=== PATIENT | male | born 1980 | race Caucasian/White ===

== ENCOUNTER → 2018-10-30 | Outpatient (CLI) | payer BC | LOC: M ADAMS 15:56 | DX: M25.512 Pain in left shoulder (principal); M54.5 Low back pain | CPT/HCPCS: 72100 ==

== ENCOUNTER → 2018-11-22 | Outpatient (REF) | payer BC ==
[2018-11-22 17:38] LABS: BASO # 0.1 10^3/uL (0.0-0.2); BASO % 0.7 % (0.0-1.0); EOS # 0.2 10^3/uL (0.0-0.50); EOS % 2.3 % (0.0-3.0); HEMATOCRIT 46.6 % (42.0-52.0); LYMPH % 25.8 % (24.0-44.0); MEAN CORPUSCULAR HEMOGLOBIN 30.4 pg (27.0-33.0); MEAN CORPUSCULAR HGB CONC 34.3 g/dl (32.0-36.5); MEAN CORPUSCULAR VOLUME 88.4 fl (80.0-96.0); MONO # 0.5 10^3/uL (0.0-0.8); NEUTROPHILS # 4.9 10^3/uL (1.8-7.7); NEUTROPHILS % 63.3 % (36.0-66.0); PLATELET COUNT, AUTOMATED 223 10^3/uL (150-450); RED BLOOD COUNT 5.27 10^6/uL (4.30-6.10); WHITE BLOOD COUNT 7.7 10^3/uL (4.0-10.0)
[2018-11-22 17:52] LABS: ALBUMIN 3.9 GM/DL (3.2-5.2); ALT/SGPT 41 U/L (12-78); BILIRUBIN,TOTAL 0.5 MG/DL (0.2-1.0); BLOOD UREA NITROGEN 14 MG/DL (7-18); CALCIUM LEVEL 8.8 MG/DL (8.5-10.1); CARBON DIOXIDE LEVEL 29 MEQ/L (21-32); CHLORIDE LEVEL 105 MEQ/L (98-107); CHOLESTEROL LEVEL 201 MG/DL (<200); CHOLESTEROL RISK RATIO 4.568 (<5); CREATININE FOR GFR 0.94 MG/DL (0.70-1.30); FREE T4 0.74 NG/DL (0.76-1.46); GLOMERULAR FILTRATION RATE > 60.0 (>60); GLUCOSE, FASTING 82 MG/DL (70-100); HDL CHOLESTEROL 44 MG/DL (>40); LDL CHOLESTEROL 110 MG/DL (<100); NON-HDL-C 157 MG/DL; POTASSIUM SERUM 4.3 MEQ/L (3.5-5.1); SODIUM LEVEL 140 MEQ/L (136-145); TRIGLYCERIDES LEVEL 233 MG/DL (<150)
[2018-11-24 11:31] LABS: TOTAL 25(OH) VITAMIN D 26.3 NG/ML (30.0-100.0)
== END ==
LOC: M SFHCADAM 08:07
PROVIDERS: ATTEND Physician Assistant Medical
DX: M25.512 Pain in left shoulder (principal); F43.10 Post-traumatic stress disorder, unspecified; F41.1 Generalized anxiety disorder; R40.0 Somnolence

== ENCOUNTER → 2018-11-22 | Outpatient (CLI) | payer BC | LOC: M ADAMS 08:15 | PROVIDERS: ATTEND Physician Assistant Medical | DX: M25.512 Pain in left shoulder (principal); F43.10 Post-traumatic stress disorder, unspecified; F41.1 Generalized anxiety disorder; R40.0 Somnolence ==

== ENCOUNTER 2019-02-11 16:25 | Inpatient (IN) | payer BC ==
[~2019-02-11] VITALS: Ht 177.8 cm; Wt 110.1 kg
[2019-02-11] MEDS ORDERED: ONDANSETRON 4MG/2ML VIAL (J2405) IV ONE (16:45)
[2019-02-11] MEDS ORDERED: MORPHINE 4 MG/ML 1ML VIAL/SYRINGE (J2270) IV ONE ×2 (16:45→18:30)
[2019-02-11] MEDS ORDERED: PIPERACILLIN/TAZOBACTAM SOD 3.375 GM in D5W MINI-BAG PLUS 50 ML IV ONE (16:45)
[2019-02-11] MEDS ORDERED: NS 1,000 ML IV ONE (16:45)
[2019-02-11 16:53] LABS: BASO % 0.3 % (0.0-1.0); EOS # 0.1 10^3/uL (0.0-0.50); EOS % 0.5 % (0.0-3.0); HEMATOCRIT 45.1 % (42.0-52.0); HEMOGLOBIN 15.8 g/dl (13.5-17.5); LYMPH # 2.4 10^3/uL (1.5-4.5); MEAN CORPUSCULAR HEMOGLOBIN 30.2 pg (27.0-33.0); MEAN CORPUSCULAR VOLUME 86.1 fl (80.0-96.0); MONO # 1.3 10^3/uL (0.0-0.8); MONO % 8.7 % (0.0-5.0); NEUTROPHILS # 10.9 10^3/uL (1.8-7.7); NEUTROPHILS % 74.2 % (36.0-66.0); PLATELET COUNT, AUTOMATED 213 10^3/uL (150-450); RED BLOOD COUNT 5.24 10^6/uL (4.30-6.10); WHITE BLOOD COUNT 14.7 10^3/uL (4.0-10.0)
[2019-02-11] MEDS ORDERED: IBUPOTC PO (17:18)
[2019-02-11 17:34] LABS: ALBUMIN 3.9 GM/DL (3.2-5.2); ALT/SGPT 22 U/L (12-78); AMYLASE 36 U/L (25-115); BILIRUBIN,DIRECT 0.2 MG/DL (0.0-0.2); BLOOD UREA NITROGEN 13 MG/DL (7-18); CALCIUM LEVEL 8.8 MG/DL (8.5-10.1); CARBON DIOXIDE LEVEL 26 MEQ/L (21-32); CHLORIDE LEVEL 103 MEQ/L (98-107); CREATININE FOR GFR 1.07 MG/DL (0.70-1.30); GLOMERULAR FILTRATION RATE > 60.0 (>60); GLUCOSE, FASTING 69 MG/DL (70-100); LIPASE 119 U/L (73-393); SODIUM LEVEL 138 MEQ/L (136-145); TOTAL PROTEIN 7.1 GM/DL (6.4-8.2)
[2019-02-11] MEDS ORDERED: NS 1,000 ML IV SCH (18:30)
--- NOTE | 2019-02-11 20:16 | ED PDOC ---
Post-Departure Follow-Up SPOKE WITH DR. NAM REGARDING THIS PT, DUE TO LACK OF ADMISSION ORDERS AT 2.75 HOURS OF "PENDING ADMISSION" STATUS. DR. NAM EXPLAINED HE WAS WALKING INTO A MEETING WHEN LAVERNE SWANSON PA-C HAD CALLED AND SPOKE WITH HIM. HE WAS JUST GETTING HOME AND WAS PUTTING IN ORDERS ON THIS PT AT THAT TIME. ALICIA ROBERTSON PA-C Feb 11, 2019 20:16
[2019-02-11] MEDS ORDERED: ACETAMINOPHEN TAB 650MG DOSE (2X325MG) PO PRN (20:45)
[2019-02-11] MEDS ORDERED: ONDANSETRON 4MG/2ML VIAL (J2405) IV PRN (20:45)
[2019-02-11] MEDS ORDERED: MORPHINE 4 MG/ML 1ML VIAL/SYRINGE (J2270) IV PRN (20:45)
[2019-02-11] MEDS ORDERED: KETOROLAC 30 MG/ML VIAL (J1885) IV PRN (20:45)
[2019-02-11] MEDS: KCL 20MEQ IN D5/0.45NS 1000ML 1,000 ML IV SCH (21:19)
[2019-02-11] MEDS: SENOKOT S TAB PO SCH (21:25)
[2019-02-11] MEDS: NORCO, ANEXSIA 5/325MG TABLET (HYDROcodone/ACETAMINOPHEN) PO PRN (21:26)
[2019-02-11] MEDS: PIPERACILLIN/TAZOBACTAM SOD 3.375 GM in D5W MINI-BAG PLUS 50 ML IV SCH (22:57)
[2019-02-11 23:17] VITALS: BP 131/66
[2019-02-12] MEDS: NORCO, ANEXSIA 5/325MG TABLET (HYDROcodone/ACETAMINOPHEN) PO PRN (03:57)
[2019-02-12 04:00] VITALS: BP 117/64
[2019-02-12] MEDS: PIPERACILLIN/TAZOBACTAM SOD 3.375 GM in D5W MINI-BAG PLUS 50 ML IV SCH ×4 (05:44→23:29)
[2019-02-12] MEDS: KCL 20MEQ IN D5/0.45NS 1000ML 1,000 ML IV SCH ×3 (06:25→21:55)
[2019-02-12 09:12] LABS: HEMATOCRIT 38.7 % (42.0-52.0); MEAN CORPUSCULAR HEMOGLOBIN 30.3 pg (27.0-33.0); MEAN CORPUSCULAR HGB CONC 34.1 g/dl (32.0-36.5); MEAN CORPUSCULAR VOLUME 88.8 fl (80.0-96.0); PLATELET COUNT, AUTOMATED 191 10^3/uL (150-450); RED BLOOD COUNT 4.36 10^6/uL (4.30-6.10); WHITE BLOOD COUNT 8.9 10^3/uL (4.0-10.0)
[2019-02-12] MEDS: SENOKOT S TAB PO SCH ×2 (09:13→21:55)
[2019-02-12] MEDS: ENOXAPARIN 40 MG/0.4 ML SYRINGE (J1650) SC SCH (09:13)
[2019-02-12 09:33] LABS: BLOOD UREA NITROGEN 12 MG/DL (7-18); CALCIUM LEVEL 8.3 MG/DL (8.5-10.1); CARBON DIOXIDE LEVEL 27 MEQ/L (21-32); CHLORIDE LEVEL 106 MEQ/L (98-107); CREATININE FOR GFR 1.02 MG/DL (0.70-1.30); GLOMERULAR FILTRATION RATE > 60.0 (>60); GLUCOSE, FASTING 86 MG/DL (70-100); HEMOGLOBIN 13.2 g/dl (13.5-17.5); MAGNESIUM LEVEL 2.2 MG/DL (1.8-2.4); SODIUM LEVEL 138 MEQ/L (136-145)
--- NOTE | 2019-02-12 13:37 | HPE ---
DATE OF ADMISSION: 02/11/2019 CHIEF COMPLAINT: Left lower quadrant pain. HISTORY OF PRESENT ILLNESS: The patient is a 38-year-old male, who started having pains a couple of days ago. He had an outpatient CT scan done showing concern for perforated diverticulitis and he was brought into emergency room last evening for further evaluation. In the emergency room (ER), he did have a white count of 14.[address] from earlier in the day that showed diverticulitis with likely contained perforation. Therefore, he was admitted to [facility] for further evaluation. I admitted him overnight, just kept him nothing by mouth, intravenous (IV) fluids and antibiotics. This morning, he says his pain is almost completely resolved. Denies any nausea or vomiting. No fevers or chills. He has never had any symptoms like this in the past. No prior colonoscopy. No family history of colon cancer or diseases. No problems with blood in his stool or change in bowel movements or unexplained weight loss. Denies any other medical or surgical problems, and no recent trauma or travel to the abdomen. This morning, his labs have improved from 14.7 white count down to 8.9. Again, his pain is significantly improved. He has no other complaints. PAST MEDICAL HISTORY: Negative. PAST SURGICAL HISTORY: Negative. ALLERGIES: NONE. HOME MEDICATIONS: None. SOCIAL HISTORY: Denies drug, alcohol or tobacco abuse. FAMILY HISTORY: Noncontributory. REVIEW OF SYSTEMS: Pertinent positives and negatives as stated in the history of present illness (HPI). PHYSICAL EXAMINATION: General: Alert and oriented times three. No acute stress. Vital signs: Temperature 97.6, pulse 79, respirations 18, blood pressure 117/64, pulse oximetry 98% room air. HEENT: Pupils equally round and react to light and accommodation. Heart: S1, S2, regular rate and rhythm. Lungs: Clear to auscultation bilaterally. Abdomen: Soft. Tender to palpation left lower quadrant, localized. No guarding or rigidity. No palpable masses. Extremities: No clubbing, cyanosis or edema. LABORATORY DATA: White count 8.9, down from 14.7 yesterday evening. Hemoglobin 13.2. Platelets 191. Lactic acid 1.1. Potassium 4. Creatinine 1.02. Magnesium 2.2. IMAGING: CT abdomen and pelvis from yesterday early afternoon showed acute diverticulitis left lower quadrant, at the sigmoid junction some extraluminal gas and the pericolonic fat localized to the left lower quadrant. No abscess or distant free air identified. ASSESSMENT AND PLAN: The patient is a 38-year-old male with complicated diverticulitis. This is the first episode he has ever had. No prior colonoscopy. Recommendation at this time is to treat him medically, IV fluids, antibiotics, which he is already responding to well. Will start him on sips and chips for today since he is still having some pain, reevaluate him tomorrow morning. As long as his pain is improving, I will start him on a clear liquid diet and slowly advance him to a low residue diet. Once his pain is almost completely resolved, I will plan to discharge him home on a low-residue diet for least 2 weeks. He will followup me in the office then, and we can plan for an outpatient colonoscopy in about 6 weeks. I did bring up the subject of an elective sigmoid resection with him. I will discuss that more in detail with him in the future. At this point, he is considering it as a possibility, but again, we will wait to make any further recommendations until after he has a screening colonoscopy. All of his questions were answered and I will plan to see him again in the morning.
[2019-02-12 14:00] VITALS: BP 122/66
[2019-02-12 22:00] VITALS: BP 124/70
[2019-02-13] MEDS: PIPERACILLIN/TAZOBACTAM SOD 3.375 GM in D5W MINI-BAG PLUS 50 ML IV SCH (05:51)
[2019-02-13] MEDS: KCL 20MEQ IN D5/0.45NS 1000ML 1,000 ML IV SCH (05:52)
[2019-02-13 06:00] VITALS: BP 110/70
[2019-02-13 06:47] LABS: HEMOGLOBIN 14.3 g/dl (13.5-17.5); MEAN CORPUSCULAR HEMOGLOBIN 30.4 pg (27.0-33.0); MEAN CORPUSCULAR VOLUME 89.4 fl (80.0-96.0); PLATELET COUNT, AUTOMATED 199 10^3/uL (150-450); WHITE BLOOD COUNT 7.9 10^3/uL (4.0-10.0)
[2019-02-13 07:08] LABS: BLOOD UREA NITROGEN 8 MG/DL (7-18); CALCIUM LEVEL 8.9 MG/DL (8.5-10.1); CARBON DIOXIDE LEVEL 29 MEQ/L (21-32); CHLORIDE LEVEL 106 MEQ/L (98-107); CREATININE FOR GFR 1.05 MG/DL (0.70-1.30); GLOMERULAR FILTRATION RATE > 60.0 (>60); GLUCOSE, FASTING 93 MG/DL (70-100); MAGNESIUM LEVEL 2.3 MG/DL (1.8-2.4); POTASSIUM SERUM 3.9 MEQ/L (3.5-5.1); SODIUM LEVEL 141 MEQ/L (136-145)
[2019-02-13] MEDS ORDERED: CIPR-249 PO (08:24)
[2019-02-13] MEDS ORDERED: FLAG500T PO (08:24)
[2019-02-13] MEDS: ENOXAPARIN 40 MG/0.4 ML SYRINGE (J1650) SC SCH (08:41)
[2019-02-13] MEDS: SENOKOT S TAB PO SCH (08:41)
--- NOTE | 2019-02-13 11:32 | DSES ---
DATE OF ADMISSION: 02/11/2019 DATE OF DISCHARGE: 02/13/2019 ADMISSION DIAGNOSIS: Complicated diverticulitis with microperforation. DISCHARGE DIAGNOSIS: Complicated diverticulitis with microperforation. HOSPITAL COURSE: The patient is a 38-year-old male who came in on the evening of the to the emergency room and found to have a complicated diverticulitis from an outpatient CT scan he had done earlier in the day. His white count was slightly elevated and otherwise his vitals were stable. He was admitted to [facility] overnight. I saw him on the morning of the . After having some IV antibiotics overnight, his white count had already improved from 14 back to normal. His pain was significantly improved, but was still present. No fevers or chills. No other complaints. I started him on sips and chips and left him on IV antibiotics for another 24 hours. This morning, his pain is down to a 0. His labs are still completely normal. Vitals are stable. He is having loose bowel movements and tolerating the Cipro and Flagyl antibiotics. The plan is to discharge home today. Will keep him on Cipro and Flagyl by mouth for another 7 days and have him stick to a low-residue, low fiber diet for the next 2 weeks. I will seen in the office in 2 weeks and if he is continuing to do well will switch him over to a high fiber diet and also will schedule him for an outpatient colonoscopy in about 4-6 weeks from now. All of his questions were answered and he will be discharged home.
== END 2019-02-13 10:11 | disposition home or self-care (01) | DRG 244 ==
LOC: M ED 16:25 → M ED INP 20:38 → M MS4PR 23:17
PROVIDERS: ADMIT Surgery; ATTEND Surgery
DX: K57.20 Diverticulitis of large intestine with perforation and abscess without bleeding (principal)

== ENCOUNTER → 2019-02-11 | Outpatient (REF) | payer BC ==
[~2019-02-11] MED LIST: CIPR-249 PO; FLAG500T PO; IBUPOTC PO
[2019-02-11 19:59] LABS: BASO % 0.2 % (0.0-1.0); EOS % 0.3 % (0.0-3.0); HEMOGLOBIN 15.5 g/dl (13.5-17.5); LYMPH # 1.6 10^3/uL (1.5-4.5); LYMPH % 10.7 % (24.0-44.0); MEAN CORPUSCULAR HEMOGLOBIN 30.1 pg (27.0-33.0); MEAN CORPUSCULAR HGB CONC 34.4 g/dl (32.0-36.5); MEAN CORPUSCULAR VOLUME 87.4 fl (80.0-96.0); MONO # 1.1 10^3/uL (0.0-0.8); MONO % 7.5 % (0.0-5.0); NEUTROPHILS % 80.8 % (36.0-66.0); PLATELET COUNT, AUTOMATED 222 10^3/uL (150-450); RED BLOOD COUNT 5.15 10^6/uL (4.30-6.10); WHITE BLOOD COUNT 14.8 10^3/uL (4.0-10.0)
[2019-02-11 20:07] LABS: ALT/SGPT 24 U/L (12-78); BLOOD UREA NITROGEN 14 MG/DL (7-18); CALCIUM LEVEL 8.9 MG/DL (8.5-10.1); CARBON DIOXIDE LEVEL 27 MEQ/L (21-32); CHLORIDE LEVEL 104 MEQ/L (98-107); GLOMERULAR FILTRATION RATE > 60.0 (>60); GLUCOSE, FASTING 89 MG/DL (70-100); POTASSIUM SERUM 4.1 MEQ/L (3.5-5.1); SODIUM LEVEL 138 MEQ/L (136-145); TOTAL PROTEIN 7.2 GM/DL (6.4-8.2)
== END ==
LOC: M LAB REF 19:22
PROVIDERS: ATTEND Physician Assistant
DX: R10.814 Left lower quadrant abdominal tenderness (principal)

== ENCOUNTER → 2019-02-11 | Outpatient (CLI) | payer BC ==
[~2019-02-11] MED LIST changes: +GASTROGRAFIN SOLUTION 30ML (Q9963) As Ordered ONE; +ISOVUE-370 76% 125ML VIAL (Q9967 PER ML) As Ordered ONE
--- NOTE | 2019-02-11 16:00 | REP ---
CT abdomen and pelvis with IV and oral contrast: History: Left lower quadrant pain. Rule out diverticulitis. CT contrast dose: 100 ml of intravenous Isovue 370. CT findings: Preliminary digital manager medicaid radiograph is unremarkable. The lung bases are clear. The liver and the spleen are normal in size homogeneous in texture. Gallbladder and pancreas are unremarkable. No adrenal lesion is seen. Kidneys enhance symmetrically are morphologically intact. There is a normal appendix behind the cecum. In the left lower quadrant and pelvic CT images there is evidence of acute diverticulitis with mural thickening and pericolonic fat stranding in the left colon at the genu between the sigmoid and descending segment. There is some extra colonic gas in the pericolonic fat here consistent with a localized perforation. No abscess cavity is appreciated. The air tracks somewhat superiorly and is seen along the caudal surface of the adjacent small bowel loops. No distant free air is appreciated. There is a small ventral hernia transmitting abdominal fat at the umbilicus. Small and large bowel loops are otherwise unremarkable. Urinary bladder seminal vesicles and prostate are unremarkable. Impression: Acute diverticulitis changes left lower quadrant in the descending sigmoid junction. There is some extraluminal gas in the pericolonic fat localize the left lower quadrant. No abscess or distant site free air is seen. Findings consistent with localized perforation. Electronically Signed by Luis Alvarez MD 02/11/2019 05:28 P
== END ==
LOC: M RAD 13:57
PROVIDERS: ATTEND Physician Assistant
DX: K57.32 Diverticulitis of large intestine without perforation or abscess without bleeding (principal); K42.9 Umbilical hernia without obstruction or gangrene
CPT/HCPCS: 74177; Q9963; Q9967

== ENCOUNTER 2019-04-22 07:00 | Day surgery (SDC) | payer BC ==
[~2019-04-22] VITALS: Ht 177.8 cm; Wt 105.1 kg
[~2019-04-22 07:00] MED LIST changes: -GASTROGRAFIN SOLUTION 30ML (Q9963) As Ordered ONE; -ISOVUE-370 76% 125ML VIAL (Q9967 PER ML) As Ordered ONE; +NS 1,000 ML IV ONE
[2019-04-22] MEDS ORDERED: PROPOFOL 200 MG/20 ML VIAL As Ordered ONE (07:53)
[2019-04-22] MEDS ORDERED: LIDOCAINE 2% INJ 100 MG/5 ML SDV (FOR ANES.) As Ordered ONE (07:53)
--- NOTE | 2019-04-22 07:57 | ROOR ---
Patient Name: Donaldo Mccarty Procedure Date: 04/22/2019 7:30 AM Date of : 1980 Age: 38 Room: [facility] Gender: Male Note Status: Finalized Procedure: Colonoscopy Indications: Suspected diverticulosis of the colon Providers: DO Abelino Duron MD: KENDALL Kevin Requesting Provider: Medicines: Propofol per Anesthesia Complications: No immediate complications. Procedure: Pre-Anesthesia Assessment: - Prior to the procedure, a History and Physical was performed, and patient medications and allergies were reviewed. The patient is competent. The risks and benefits of the procedure and the sedation options and risks were discussed with the patient. All questions were answered and informed consent was obtained. Patient identification and proposed procedure were verified by the physician, the nurse, the anesthesiologist and the electronics technician in the endoscopy suite. Mental Status Examination: alert and oriented. Airway Examination: normal oropharyngeal airway and neck mobility. Respiratory Examination: clear to auscultation. CV Examination: normal. Prophylactic Antibiotics: The patient does not require prophylactic antibiotics. Prior Anticoagulants: The patient has taken no previous anticoagulant or antiplatelet agents. ASA Grade Assessment: II - A patient with mild systemic disease. After reviewing the risks and benefits, the patient was deemed in satisfactory condition to undergo the procedure. The anesthesia plan was to use monitored anesthesia care (MAC). Immediately prior to administration of medications, the patient was re-assessed for adequacy to receive sedatives. The heart rate, respiratory rate, oxygen saturations, blood pressure, adequacy of pulmonary ventilation, and response to care were monitored throughout the procedure. The physical status of the patient was re-assessed after the procedure. The Colonoscope was introduced through the anus and advanced to the cecum, identified by the ileocecal valve. The colonoscopy was performed without difficulty. The patient tolerated the procedure well. Findings: A less than 5 mm polyp was found in the transverse colon. The polyp was hyperplastic. The polyp was removed with a jumbo cold forceps. Resection and retrieval were complete. Estimated blood loss was minimal. Multiple small and large-mouthed diverticula were found in the sigmoid colon and descending colon. The exam was otherwise without abnormality on direct and retroflexion views. Impression: - One less than 5 mm polyp in the transverse colon, removed with a jumbo cold forceps. Resected and retrieved. - Diverticulosis in the sigmoid colon and in the descending colon. - The examination was otherwise normal on direct and retroflexion views. Recommendation: - Patient has a contact number available for emergencies. The signs and symptoms of potential delayed complications were discussed with the patient. Return to normal activities tomorrow. Written discharge instructions were provided to the patient. - Repeat colonoscopy in 5-10 years for surveillance based on pathology results. - Return to my office as previously scheduled. - Await pathology results. Gold Romano DO 04/22/2019 7:57:18 AM Electronically signed by Gold Romano DO Number of Addenda: 0 Note Initiated On: 04/22/2019 7:30 AM Estimated Blood Loss: Estimated blood loss was minimal.
[2019-04-22 08:25] VITALS: BP 118/82
== END 2019-04-22 08:37 | disposition home or self-care (01) ==
LOC: M OPP 07:00
PROVIDERS: ATTEND Surgery
DX: D12.3 Benign neoplasm of transverse colon (principal); K57.30 Diverticulosis of large intestine without perforation or abscess without bleeding

== ENCOUNTER → 2021-01-19 | Outpatient (CLI) | payer BC, OTHER ==
[~2021-01-19] MED LIST changes: -NS 1,000 ML IV ONE
--- NOTE | 2021-01-19 11:53 | REPPI ---
INDICATION: CLOSED FRACTURE OF ONE RIB RIGHT SIDE, WHEEZING COMPARISON: None. TECHNIQUE: PA/Lateral FINDINGS: Lungs: Clear, no infiltrate. Heart: Normal in size. Mediastinum: Mediastinal silhouette unremarkable. Pleural angles: Unremarkable.. Bones and soft tissues: There appears to be an old healed fracture of the posterolateral right 8th rib. IMPRESSION: No acute pulmonary disease. <Electronically signed by Gold Barclay > 01/19/21 [id number]
== END ==
LOC: M PLAIMG 09:56
PROVIDERS: ATTEND Physician Assistant
DX: S22.31XD Fracture of one rib, right side, subsequent encounter for fracture with routine healing (principal); E06.2 Chronic thyroiditis with transient thyrotoxicosis

== ENCOUNTER → 2021-02-14 | Outpatient (CLI) | payer BC, OTHER ==
--- NOTE | 2021-02-14 14:31 | REPPI ---
INDICATION: CLOSED FX OF ONE RIGHT RIB WITH ROUTINE HEALING. COMPARISON: Comparison chest x-ray January 19, 2021.. TECHNIQUE: Four views of the right rib cage are provided. FINDINGS: There are 11 right thoracic ribs. There are healing fractures with callus formation in the lateral aspect of the right 7th and 8th ribs. There is no evidence of pneumothorax or hydrothorax. Right lung appears clear. No other fracture is seen. IMPRESSION: Healing right 7th and 8th lateral rib fractures. Nondisplaced. <Electronically signed by Jarrell Alvarez > 02/14/21 [id number]
== END ==
LOC: M PLAIMG 09:48
PROVIDERS: ATTEND Physician Assistant
DX: S22.31XD Fracture of one rib, right side, subsequent encounter for fracture with routine healing (principal); X58.XXXD Exposure to other specified factors, subsequent encounter

== ENCOUNTER 2023-01-15 18:03 | Emergency (ER) | payer OTHER ==
[~2023-01-15] VITALS: Ht 177.8 cm; Wt 97.7 kg
[2023-01-15] MEDS ORDERED: BUSP10TA PO (18:33)
[2023-01-15] MEDS ORDERED: SERT-141 PO (18:33)
[2023-01-15] MEDS ORDERED: ALBU6.7H6 INH (18:33)
[2023-01-15 18:49] LABS: BASO % 0.6 % (0.0-1.0); EOS # 0.1 10^3/uL (0.0-0.5); EOS % 1.6 % (0.0-3.0); HEMATOCRIT 42.7 % (42.0-52.0); HEMOGLOBIN 14.8 g/dl (13.5-17.5); LYMPH # 2.2 10^3/uL (1.5-5.0); LYMPH % 32.2 % (24.0-44.0); MEAN CORPUSCULAR HEMOGLOBIN 31.2 pg (27.0-33.0); MEAN CORPUSCULAR HGB CONC 34.7 g/dl (32.0-36.5); MEAN CORPUSCULAR VOLUME 89.9 fl (80.0-96.0); MONO # 0.5 10^3/uL (0.0-0.8); MONO % 7.2 % (2.0-8.0); NEUTROPHILS # 3.9 10^3/uL (1.5-8.5); PLATELET COUNT, AUTOMATED 220 10^3/uL (150-450); RED BLOOD COUNT 4.75 10^6/uL (4.30-6.10); WHITE BLOOD COUNT 6.8 10^3/uL (4.0-10.0)
[2023-01-15 19:23] LABS: CK-MB VALUE MASS < 1.0 NG/ML (<3.6)
[2023-01-15 19:25] LABS: CPK CREATINE PHOSPHOKINASE 80 U/L (46-171); MB/CK RELATIVE INDEX 1.25 (< OR =4)
[2023-01-15] MEDS ORDERED: LIDOCAINE 5% (LIDODERM) PATCH TD ONE (19:35)
[2023-01-15 20:33] LABS: CK-MB VALUE MASS < 1.0 NG/ML (<3.6)
[2023-01-15 20:34] LABS: CPK CREATINE PHOSPHOKINASE 75 U/L (46-171); MB/CK RELATIVE INDEX 1.33 (< OR =4)
[2023-01-15 21:30] VITALS: BP 127/79
== END 2023-01-15 22:30 | disposition home or self-care (01) ==
LOC: M ED 18:03 → EDBD 18:03 → M ED 22:30
DX: R07.9 Chest pain, unspecified (principal); F43.10 Post-traumatic stress disorder, unspecified; F17.200 Nicotine dependence, unspecified, uncomplicated; F12.10 Cannabis abuse, uncomplicated; F10.10 Alcohol abuse, uncomplicated; Z79.51 Long term (current) use of inhaled steroids; Z79.83 Long term (current) use of bisphosphonates; Z79.899 Other long term (current) drug therapy

== ENCOUNTER → 2023-06-22 | Outpatient (CLI) | payer OTHER ==
[~2023-06-22] MED LIST changes: +ALBU6.7H6 INH; +BUSP10TA PO; +SERT-141 PO
== END ==
LOC: M RAD 12:21
PROVIDERS: ATTEND Orthopaedic Surgery
DX: M47.812 Spondylosis without myelopathy or radiculopathy, cervical region (principal); G56.22 Lesion of ulnar nerve, left upper limb; M25.412 Effusion, left shoulder; M67.814 Other specified disorders of tendon, left shoulder; M50.222 Other cervical disc displacement at C5-C6 level; M50.223 Other cervical disc displacement at C6-C7 level

== ENCOUNTER 2025-01-15 10:43 | Day surgery (SDC) | payer OTHER ==
[~2025-01-15] VITALS: Ht 177.8 cm; Wt 112.5 kg
[~2025-01-15 10:43] MED LIST changes: +FLUT1BLS3 INH; +LORA-243 PO; +PROBCAP14 PO; +THERTAB52 PO; +VENTAER INH
[2025-01-15] MEDS ORDERED: fentaNYL 100 MCG/2 ML INJECTION As Ordered ONE (12:36)
[2025-01-15 12:48] VITALS: TEMP 97.3
[2025-01-15] MEDS ORDERED: propofoL 200 MG/20 ML VIAL As Ordered ONE (12:57)
[2025-01-15 13:05] VITALS: BP 115/70; O2SAT 98
== END 2025-01-15 13:10 | disposition home or self-care (01) ==
LOC: M OPP 10:43
PROVIDERS: ATTEND Surgery
DX: K64.0 First degree hemorrhoids (principal); Z86.0100 Personal history of colon polyps, unspecified; G47.30 Sleep apnea, unspecified; Z91.030 Bee allergy status; Z79.51 Long term (current) use of inhaled steroids; Z79.899 Other long term (current) drug therapy
CPT/HCPCS: 45378; J3010